=== PATIENT | female | born 1990 | race American Indian/Alaskan Native ===

== ENCOUNTER 2021-10-15 10:50 | Outpatient (CLI) | payer MEDICAID ==
[2021-10-15] MEDS ORDERED: LACTATED RINGERS 500 ML IV ONE (12:00)
[2021-10-15 12:29] LABS: Hematocrit 32.6 % (30.3-42.9); Hemoglobin 10.6 gm/dl (10.1-14.3); Mean Corpuscular HGB Conc 33 % (30-34); Mean Corpuscular Volume 80 fl (79-97); Platelet Count 204 K/mm3 (140-440); Red Blood Count 4.06 M/mm3 (3.65-5.03)
[2021-10-15 12:39] LABS: RBC,Urine < 1.0 /HPF (0.0-6.0); WBC,Urine < 1.0 /HPF (0.0-6.0)
[2021-10-15 12:49] LABS: Bilirubin,Urine Negative (Negative); Blood,Urine Negative (Negative); Color,Urine Straw (Yellow); PH,Urine 6.5 (5.0-7.0); Protein,Urine <15 mg/dL mg/dL (Negative); Urobilinogen,Urine < 2.0 mg/dL (<2.0)
[2021-10-15 12:59] VITALS: BP 109/59
[2021-10-15 13:08] LABS: Alanine Aminotransferase 15 units/L (7-56); Uric Acid 3.5 mg/dL (3.5-7.6)
== END 2021-10-15 13:56 | disposition home or self-care (01) ==
LOC: TRG 10:50 → APU 10:53 → TRG 13:56
PROVIDERS: ATTEND Student in an Organized Health Care Education/Training Program
DX: O13.3 Gestational [pregnancy-induced] hypertension without significant proteinuria, third trimester (principal); Z3A.34 34 weeks gestation of pregnancy
CPT/HCPCS: 36415; 59025; 81001; 82565; 83615; 84450; 84460; 84550; 85027; 86592; 86593; 86780

== ENCOUNTER 2021-11-14 19:30 | Inpatient (IN) | payer MEDICAID ==
[2021-11-14] MEDS ORDERED: TERBUTALINE 1 MG/1 ML INJ SUB-Q PRN (20:39)
[2021-11-14] MEDS ORDERED: ONDANSETRON 4 MG/2 ML INJ IV PRN (20:39)
[2021-11-14] MEDS ORDERED: miSOPROStol 200 MCG TAB PR PRN (20:39)
[2021-11-14] MEDS ORDERED: CARBOPROST TROMETHAMINE 250 MCG/1 ML INJ IM PRN (20:39)
[2021-11-14] MEDS ORDERED: NalbUPHINE 10 MG/1 ML INJ IV PRN (20:39)
[2021-11-14] MEDS ORDERED: METHYLERGONOVINE MALEATE 0.2 MG/ML VIAL IM PRN (20:39)
[2021-11-14] MEDS ORDERED: LIDOCAINE (2%) 20 MG/1 ML VIAL 20 ML MDV INFILTRATI ONE (20:39)
[2021-11-14] MEDS ORDERED: OXYTOCIN 10 UNIT/1 ML INJ IM PRN (20:39)
[2021-11-14] MEDS ORDERED: MINERAL OIL 30 ML ORAL LIQD PO PRN (20:39)
[2021-11-14] MEDS ORDERED: ePHEDrine SULFATE 50 MG/1 ML INJ IV PRN (20:39)
[2021-11-14] MEDS ORDERED: ACETAMINOPHEN 325 MG TAB PO PRN (20:39)
[2021-11-14] MEDS ORDERED: LOPERAMIDE 2 MG CAP PO PRN (20:39)
[2021-11-14] MEDS ORDERED: fentaNYL 100 MCG/2 ML INJ IV PRN (20:39)
--- NOTE | 2021-11-14 20:39 | History and Physical Report ---
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 Family History Summary: Mother - Has Family History of Endometrial Cancer - Entered On: 05/20/2021 Risk Factors: Smoked Tobacco Use: Never smoker Smokeless Tobacco Use: Never Passive Smoke Exposure: no HIV High Risk Behavior: no Exercise: no No Dietary Counseling Reason: pn yes PAP Smear History: Date of Last PAP Smear: 04/13/2017 Results: Normal Alcohol Use: no Drug Use: no Past Medical History Surgery (Non-taxation agent): Lymph node removed as child Abnormal PAP: No VALE Exposure: negative Infertility: negative Uterine Anomaly: negative Uterine Surgery (not C/S): negative Other Gynecologic Problems: negative Social Hx: Patient is single Smoking History: Patient has never smoked. Infection History Hx of STD: Syphilis HIV Risk Eval: no Hepatitis B Risk Eval: low risk Genetic History Congenital Heart Defect: Mom: no Dad: no Hannah Disease: Mom: no Dad: no Thalassemia Mom: no Dad: no Neural Tube Defect Mom: no Dad: no Down's Syndrome Mom: no Dad: no John-Sachs Mom: no Dad: no Sickle Cell Disease/Trait Mom: no Dad: no Hemophilia Mom: no Dad: no Muscular Dystrophy Mom: no Dad: no Cystic Fibrosis Mom: no Dad: no Nataliya Chorea Mom: no Dad: no Mental Retardation Mom: no Dad: no Fragile X Mom: no Dad: no Other Genetic/Chromosomal Disorder Mom: no Dad: no Child w/other defect Mom: no Dad: no Enviromental Exposures Xray Exposure: no Medication, drug, or alcohol use since LMP: no Chemical/Other Exposure: no Exposure to Cat Liter: no Hx of Parvovirus (Fifth Disease): no Occupational Exposure to Children: none Active Medications: B6 TABS () GARLIC TABS () VITAMINS () Current Allergies: No known allergies Past History Past Medical History: other (see HPI) Past Surgical History: other (see HPI) 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) Family/Genetic History: other (see HPI) - Obstetrical History Expected Date of Delivery: 11/21/21 Actual Gestation: 39 Week(s) 1 Day(s) : 3 Para: 1 Hx # Term Pregnancies: 1 Number of Pregnancies: 0 Spontaneous Abortions: 1 Induced : 0 Number of Living Children: 1 Medications and Allergies Allergies Allergy/AdvReac Type Severity Reaction Status Date / Time No Known Allergies Allergy Unverified 01/18/15 15:10 Home Medications Medication Instructions Recorded Confirmed Last Taken Type Vitamin 1 tab PO DAILY 01/31/15 01/31/15 01/29/15 History Review of Systems All systems: negative - Physical Exam Breasts: Positive: normal Cardiovascular: Regular rate Lungs: Positive: Normal air movement Abdomen: Positive: normal appearance, soft Genitourinary (Female): Positive: normal external genitalia, normal perenium Vulva: both: normal - Obstetrical FHR: category 1 Uterine Contraction Monitor Mode: External Cervical Dilatation: 1 Cervical Effacement Percentage: 50 station: -3 Uterine Contraction Pattern: Irregular Results Result Diagrams: 11/15/21 01:38 All other labs normal. Assessment and Plan 31y/o @ 39+0 weeks admitted for IOL d/t Diet controlled GDM. Plan for cervidil. - Patient Problems (1) Hx of syphilis Current Visit: Yes Status: Acute (2) Gestational diabetes mellitus (GDM) Current Visit: Yes Status: Acute Qualifiers: Gestational diabetes mellitus control: diet-controlled Trimester: third tr Qualified Code(s): O24.410 - Gestational diabetes mellitus in pre gnancy, diet controlled (3) with 39 completed weeks gestation Current Visit: Yes Status: Acute
[2021-11-14] MEDS ORDERED: OXYTOCIN DRIP 30 UNITS/500 ML BAG IV SCH ×2 (21:00)
[2021-11-14] MEDS ORDERED: DINOPROSTONE 10 MG VAG SUPP VG ONE (22:41)
[2021-11-15 02:00] LABS: Hematocrit 35.1 % (30.3-42.9); Hemoglobin 11.5 gm/dl (10.1-14.3); Mean Corpuscular HGB Conc 33 % (30-34); Mean Corpuscular Volume 83 fl (79-97); Platelet Count 199 K/mm3 (140-440); Red Blood Count 4.22 M/mm3 (3.65-5.03); Red Cell Distribution Width 18.8 % (13.2-15.2)
--- NOTE | 2021-11-15 06:22 | Event Note ---
Date: 11/15/21 Cervidil not placed d/t staffing, will start pitocin for IOL this AM.
[2021-11-15] MEDS: LACTATED RINGERS 1,000 ML IV SCH ×2 (06:24→09:01)
--- NOTE | 2021-11-15 07:58 | Progress Note ---
Assessment and Plan A: 31 y.o. @ 39.1 wks, IOL d/t GDM, diet controlled. - Patient Problems (1) Gestational diabetes mellitus (GDM) Current Visit: Yes Status: Acute Qualifiers: Gestational diabetes mellitus control: diet-controlled Trimester: third trimester Qualified Code(s): O24.410 - Gestational diabetes mellitus in , diet controlled Plan to address problem: Glucose checks ordered for q 6 hrs. Continue to monitor glucose during labor. (2) with 39 completed weeks gestation Current Visit: Yes Status: Acute Plan to address problem: Continue with IOL. Receiving IV fluid bolus for epidural placement. Continue to monitor status through EFM. Subjective - Subjective Date of service: 11/15/21 Principal diagnosis: IUP @ 39.1 wks, IOL d/t GDM Interval history: Pt states that she thinks her water has broken. She is also in pain from the contractions and is requesting an epidural be placed. She declines pain medicat ion via IV. Patient reports: loss of fluid (Pt states she thinks her water has broken. ) Objective - Vital Signs Vital Signs: Vital Signs - 12hr 11/15/21 11/15/21 11/15/21 00:37 00:40 00:45 Temperature Pulse Rate 83 79 83 Respiratory Rate Blood Pressure 122/58 O2 Sat by Pulse 99 99 Oximetry O2 Sat by Pulse Oximetry [ Posterior Bilateral Throughout] 11/15/21 11/15/21 11/15/21 00:50 00:55 01:00 Temperature 97.9 F Pulse Rate 90 83 82 Respiratory 18 Rate Blood Pressure O2 Sat by Pulse 98 98 100 Oximetry O2 Sat by Pulse 100 Oximetry [ Posterior Bilateral Throughout] 11/15/21 11/15/21 11/15/21 01:05 01:10 01:17 Temperature Pulse Rate 85 90 83 Respiratory Rate Blood Pressure O2 Sat by Pulse 99 99 100 Oximetry O2 Sat by Pulse Oximetry [ Posterior Bilateral Throughout] 11/15/21 11/15/21 11/15/21 01:22 01:27 01:32 Temperature Pulse Rate 75 84 88 Respiratory Rate Blood Pressure O2 Sat by Pulse 100 100 98 Oximetry O2 Sat by Pulse Oximetry [ Posterior Bilateral Throughout] 11/15/21 11/15/21 11/15/21 01:37 01:40 01:42 Temperature Pulse Rate 79 86 83 Respiratory Rate Blood Pressure O2 Sat by Pulse 98 92 99 Oximetry O2 Sat by Pulse Oximetry [ Posterior Bilateral Throughout] 11/15/21 11/15/21 11/15/21 01:47 01:52 01:57 Temperature Pulse Rate 82 81 85 Respiratory Rate Blood Pressure O2 Sat by Pulse 99 100 100 Oximetry O2 Sat by Pulse Oximetry [ Posterior Bilateral Throughout] 11/15/21 11/15/21 11/15/21 02:02 02:07 02:12 Temperature Pulse Rate 78 83 75 Respiratory Rate Blood Pressure O2 Sat by Pulse 100 100 100 Oximetry O2 Sat by Pulse Oximetry [ Posterior Bilateral Throughout] 11/15/21 11/15/21 11/15/21 02:17 02:22 02:27 Temperature Pulse Rate 75 81 80 Respiratory Rate Blood Pressure O2 Sat by Pulse 100 97 98 Oximetry O2 Sat by Pulse Oximetry [ Posterior Bilateral Throughout] 11/15/21 11/15/21 11/15/21 02:32 02:37 02:42 Temperature Pulse Rate 94 H 74 85 Respiratory Rate Blood Pressure O2 Sat by Pulse 98 100 98 Oximetry O2 Sat by Pulse Oximetry [ Posterior Bilateral Throughout] 11/15/21 11/15/21 11/15/21 02:46 02:47 02:52 Temperature Pulse Rate 78 73 80 Respiratory Rate Blood Pressure 107/51 O2 Sat by Pulse 100 98 Oximetry O2 Sat by Pulse Oximetry [ Posterior Bilateral Throughout] 11/15/21 11/15/21 11/15/21 02:57 03:02 03:07 Temperature Pulse Rate 80 80 83 Respiratory Rate Blood Pressure O2 Sat by Pulse 97 98 98 Oximetry O2 Sat by Pulse Oximetry [ Posterior Bilateral Throughout] 11/15/21 11/15/21 11/15/21 03:12 03:17 03:22 Temperature Pulse Rate 86 86 87 Respiratory Rate Blood Pressure O2 Sat by Pulse 98 98 98 Oximetry O2 Sat by Pulse Oximetry [ Posterior Bilateral Throughout] 11/15/21 11/15/21 11/15/21 03:27 03:32 03:37 Temperature Pulse Rate 89 96 H 92 H Respiratory Rate Blood Pressure O2 Sat by Pulse 99 99 99 Oximetry O2 Sat by Pulse Oximetry [ Posterior Bilateral Throughout] 11/15/21 11/15/21 11/15/21 03:41 03:42 03:47 Temperature Pulse Rate 86 84 88 Respiratory Rate Blood Pressure 115/59 O2 Sat by Pulse 99 100 Oximetry O2 Sat by Pulse Oximetry [ Posterior Bilateral Throughout] 11/15/21 11/15/21 11/15/21 03:52 03:57 04:02 Temperature Pulse Rate 90 81 110 H Respiratory Rate Blood Pressure O2 Sat by Pulse 99 100 99 Oximetry O2 Sat by Pulse Oximetry [ Posterior Bilateral Throughout] 11/15/21 11/15/21 11/15/21 04:07 04:12 04:17 Temperature Pulse Rate 83 101 H 91 H Respiratory Rate Blood Pressure O2 Sat by Pulse 99 98 98 Oximetry O2 Sat by Pulse Oximetry [ Posterior Bilateral Throughout] 11/15/21 11/15/21 11/15/21 04:22 04:27 04:32 Temperature Pulse Rate 80 82 91 H Respiratory Rate Blood Pressure O2 Sat by Pulse 98 99 98 Oximetry O2 Sat by Pulse Oximetry [ Posterior Bilateral Throughout] 11/15/21 11/15/21 11/15/21 04:37 04:42 04:47 Temperature Pulse Rate 98 H 81 99 H Respiratory Rate Blood Pressure O2 Sat by Pulse 100 100 100 Oximetry O2 Sat by Pulse Oximetry [ Posterior Bilateral Throughout] 11/15/21 11/15/21 11/15/21 04:50 04:52 04:57 Temperature Pulse Rate 82 80 84 Respiratory Rate Blood Pressure 99/55 O2 Sat by Pulse 100 100 Oximetry O2 Sat by Pulse Oximetry [ Posterior Bilateral Throughout] 11/15/21 11/15/21 11/15/21 05:02 05:07 05:12 Temperature Pulse Rate 90 74 84 Respiratory Rate Blood Pressure O2 Sat by Pulse 100 100 100 Oximetry O2 Sat by Pulse Oximetry [ Posterior Bilateral Throughout] 11/15/21 11/15/21 11/15/21 05:17 05:22 05:27 Temperature Pulse Rate 93 H 84 108 H Respiratory Rate Blood Pressure O2 Sat by Pulse 99 100 99 Oximetry O2 Sat by Pulse Oximetry [ Posterior Bilateral Throughout] 11/15/21 11/15/21 11/15/21 05:28 05:32 05:37 Temperature Pulse Rate 105 H 83 85 Respiratory Rate Blood Pressure O2 Sat by Pulse 90 100 99 Oximetry O2 Sat by Pulse Oximetry [ Posterior Bilateral Throughout] 11/15/21 11/15/21 11/15/21 05:42 05:47 05:52 Temperature Pulse Rate 85 87 89 Respiratory Rate Blood Pressure O2 Sat by Pulse 98 98 98 Oximetry O2 Sat by Pulse Oximetry [ Posterior Bilateral Throughout] 11/15/21 11/15/21 11/15/21 05:57 06:02 06:05 Temperature 97.7 F Pulse Rate 93 H 94 H Respiratory 18 Rate Blood Pressure O2 Sat by Pulse 98 97 97 Oximetry O2 Sat by Pulse Oximetry [ Posterior Bilateral Throughout] 11/15/21 11/15/21 11/15/21 06:33 06:51 07:00 Temperature 98 F Pulse Rate 78 77 85 Respiratory 18 Rate Blood Pressure 95/50 89/52 O2 Sat by Pulse 100 Oximetry O2 Sat by Pulse 100 Oximetry [ Posterior Bilateral Throughout] 11/15/21 11/15/21 11/15/21 07:01 07:06 07:11 Temperature Pulse Rate 85 82 84 Respiratory Rate Blood Pressure O2 Sat by Pulse 100 100 100 Oximetry O2 Sat by Pulse Oximetry [ Posterior Bilateral Throughout] 11/15/21 11/15/21 11/15/21 07:16 07:21 07:26 Temperature Pulse Rate 82 80 86 Respiratory Rate Blood Pressure O2 Sat by Pulse 100 99 100 Oximetry O2 Sat by Pulse Oximetry [ Posterior Bilateral Throughout] 11/15/21 11/15/21 11/15/21 07:31 07:36 07:41 Temperature Pulse Rate 91 H 84 84 Respiratory Rate Blood Pressure O2 Sat by Pulse 100 99 99 Oximetry O2 Sat by Pulse Oximetry [ Posterior Bilateral Throughout] 11/15/21 11/15/21 11/15/21 07:46 07:51 07:56 Temperature Pulse Rate 91 H 80 76 Respiratory Rate Blood Pressure 122/88 O2 Sat by Pulse 98 100 100 Oximetry O2 Sat by Pulse Oximetry [ Posterior Bilateral Throughout] - Exam Breasts: deferred Cardiovascular: Regular rate Lungs: Normal air movement Abdomen: Present: normal appearance, soft Vulva: both: normal Uterus: Present: normal FHR: category 1 Uterine Contraction Monitor Mode: External Cervical Dilatation: 1 (Small amount of fluid seen at perineum. ) Cervical Effacement Percentage: 50 station: -3 Uterine Contraction Pattern: Regular Uterine Tone Measurement Phase: Resting Uterine Contraction Intensity: Moderate - Labs Labs: Abnormal Labs 11/15/21 11/15/21 01:38 01:38 MCH 27 L RDW 18.8 H Syphilis IgG/IgM Ab Reactive A Laboratory Results - last 24 hr 11/15/21 11/15/21 11/15/21 01:38 01:38 01:38 WBC 7.8 RBC 4.22 Hgb 11.5 Hct 35.1 MCV 83 MCH 27 L MCHC 33 RDW 18.8 H Plt Count 199 Syphilis IgG/IgM Ab Reactive A RPR Titer Blood Type A POSITIVE Antibody Screen Negative 11/15/21 01:38 WBC RBC Hgb Hct MCV MCH MCHC RDW Plt Count Syphilis IgG/IgM Ab RPR Titer 1:2 Blood Type Antibody Screen
[2021-11-15] MEDS ORDERED: DEXTROSE 50% IN WATER (25GM) 50 ML SYRINGE IV PRN (08:00)
[2021-11-15] MEDS ORDERED: INSULIN REGULAR, HUMAN 100 UNITS/1 ML SUB-Q SCH (09:00)
[2021-11-15] MEDS ORDERED: ePHEDrine SULFATE 50 MG/1 ML INJ IV PRN (09:19)
[2021-11-15] MEDS ORDERED: fentaNYL-BUPIV 2 MCG/ML-0.125% 200 MCG/100 ML BAG EPIDURAL ONE (09:19)
[2021-11-15] MEDS ORDERED: NALOXONE 0.4 MG/1 ML INJ IV PRN (09:19)
--- NOTE | 2021-11-15 09:19 | Anesthesia Consultation ---
Anesthesia Consult and Med Hx Date of service: 11/15/21 - Airway Anesthetic Teeth Evaluation: Good ROM Head & Neck: Adequate Mental/Hyoid Distance: Adequate Mallampati Class: Class II Intubation Access Assessment: Probably Good - Pre-Operative Health Status ASA Pre-Surgery Classification: ASA3 Proposed Anesthetic Plan: Epidural, Spinal - Pulmonary Hx Asthma: Yes (CHILDHOOD) COPD: No Hx Pneumonia: No - Cardiovascular System Hx Hypertension: No - Central Nervous System Hx Seizures: No Hx Psychiatric Problems: No - Endocrine Hx Renal Disease: No Hx End Stage Renal Disease: No Hx Non-Insulin Dependent Diabetes: Yes (gestational diabetes) Hx Hypothyroidism: No Hx Hyperthyroidism: No - Hematic Hx Anemia: No Hx Sickle Cell Disease: No - Other Systems Hx Alcohol Use: No Hx Obesity: Yes (BMI 43.7) - Additional Comments Anesthesia Medical History Comments: h/o syphilis
--- NOTE | 2021-11-15 09:52 | Progress Note ---
Labor Epidural - Labor Epidural Start Time: 09:31 Stop Time: 09:42 Performed by:: NA GREGORY Procedure: Combined spinal/epidural for labor Patient is requesting epidural for labor and pain. H&P, labs were reviewed. Patient ID confirmed, all questions and concerns were answered, and consent was signed. Timeout was performed at bedside. Patient in sitting position. Sterile prep and drape was performed. 3ml of 1% lidocaine skin wheal at L3- L4 interspace. 17-gauge Tuohy epidural needle was advanced to loss of resistance with saline technique cm x 1 attempt. 25G spinal needle introduced through epidural needle to the spinal space. Clear CSF. Injected .1ml of Precedex in the spinal space. Negative CSF negative blood. Epidural catheter advanced to 15 centimeters. Negative aspiration, test dose 3ml 1.5% Lidocaine with epi - negative. Sterile dressing applied. Patient tolerated procedure.
[2021-11-15] MEDS ORDERED: fentaNYL-BUPIV 2 MCG/ML-0.125% 200 MCG/100 ML BAG EPIDURAL SCH (10:00)
--- NOTE | 2021-11-15 12:36 | Progress Note ---
Assessment and Plan A: 31 y.o. @ 39.1 wks, IOL d/t GDM. Active labor. P: Continue with Pitocin per protocol. Continue to monitor status through EFM. Anticipate . - Patient Problems (1) Gestational diabetes mellitus (GDM) Current Visit: Yes Status: Acute Qualifiers: Gestational diabetes mellitus control: diet-controlled Trimester: third trimester Qualified Code(s): O24.410 - Gestational diabetes mellitus in , diet controlled (2) with 39 completed weeks gestation Current Visit: Yes Status: Acute Subjective - Subjective Date of service: 11/15/21 Principal diagnosis: IUP @ 39.1 wks, IOL d/t GDM Interval history: Pt comfortable with epidural. Patient reports: loss of fluid (Pt states she thinks her water has broken. ) Objective - Vital Signs Vital Signs: Vital Signs - 12hr 11/15/21 11/15/21 11/15/21 00:37 00:40 00:45 Temperature Pulse Rate 83 79 83 Respiratory Rate Blood Pressure 122/58 Blood Pressure [Right] O2 Sat by Pulse 99 99 Oximetry O2 Sat by Pulse Oximetry [ Posterior Bilateral Throughout] 11/15/21 11/15/21 11/15/21 00:50 00:55 01:00 Temperature 97.9 F Pulse Rate 90 83 82 Respiratory 18 Rate Blood Pressure Blood Pressure [Right] O2 Sat by Pulse 98 98 100 Oximetry O2 Sat by Pulse 100 Oximetry [ Posterior Bilateral Throughout] 11/15/21 11/15/21 11/15/21 01:05 01:10 01:17 Temperature Pulse Rate 85 90 83 Respiratory Rate Blood Pressure Blood Pressure [Right] O2 Sat by Pulse 99 99 100 Oximetry O2 Sat by Pulse Oximetry [ Posterior Bilateral Throughout] 11/15/21 11/15/21 11/15/21 01:22 01:27 01:32 Temperature Pulse Rate 75 84 88 Respiratory Rate Blood Pressure Blood Pressure [Right] O2 Sat by Pulse 100 100 98 Oximetry O2 Sat by Pulse Oximetry [ Posterior Bilateral Throughout] 11/15/21 11/15/21 11/15/21 01:37 01:40 01:42 Temperature Pulse Rate 79 86 83 Respiratory Rate Blood Pressure Blood Pressure [Right] O2 Sat by Pulse 98 92 99 Oximetry O2 Sat by Pulse Oximetry [ Posterior Bilateral Throughout] 11/15/21 11/15/21 11/15/21 01:47 01:52 01:57 Temperature Pulse Rate 82 81 85 Respiratory Rate Blood Pressure Blood Pressure [Right] O2 Sat by Pulse 99 100 100 Oximetry O2 Sat by Pulse Oximetry [ Posterior Bilateral Throughout] 11/15/21 11/15/21 11/15/21 02:02 02:07 02:12 Temperature Pulse Rate 78 83 75 Respiratory Rate Blood Pressure Blood Pressure [Right] O2 Sat by Pulse 100 100 100 Oximetry O2 Sat by Pulse Oximetry [ Posterior Bilateral Throughout] 11/15/21 11/15/21 11/15/21 02:17 02:22 02:27 Temperature Pulse Rate 75 81 80 Respiratory Rate Blood Pressure Blood Pressure [Right] O2 Sat by Pulse 100 97 98 Oximetry O2 Sat by Pulse Oximetry [ Posterior Bilateral Throughout] 11/15/21 11/15/21 11/15/21 02:32 02:37 02:42 Temperature Pulse Rate 94 H 74 85 Respiratory Rate Blood Pressure Blood Pressure [Right] O2 Sat by Pulse 98 100 98 Oximetry O2 Sat by Pulse Oximetry [ Posterior Bilateral Throughout] 11/15/21 11/15/21 11/15/21 02:46 02:47 02:52 Temperature Pulse Rate 78 73 80 Respiratory Rate Blood Pressure 107/51 Blood Pressure [Right] O2 Sat by Pulse 100 98 Oximetry O2 Sat by Pulse Oximetry [ Posterior Bilateral Throughout] 11/15/21 11/15/21 11/15/21 02:57 03:02 03:07 Temperature Pulse Rate 80 80 83 Respiratory Rate Blood Pressure Blood Pressure [Right] O2 Sat by Pulse 97 98 98 Oximetry O2 Sat by Pulse Oximetry [ Posterior Bilateral Throughout] 11/15/21 11/15/21 11/15/21 03:12 03:17 03:22 Temperature Pulse Rate 86 86 87 Respiratory Rate Blood Pressure Blood Pressure [Right] O2 Sat by Pulse 98 98 98 Oximetry O2 Sat by Pulse Oximetry [ Posterior Bilateral Throughout] 11/15/21 11/15/21 11/15/21 03:27 03:32 03:37 Temperature Pulse Rate 89 96 H 92 H Respiratory Rate Blood Pressure Blood Pressure [Right] O2 Sat by Pulse 99 99 99 Oximetry O2 Sat by Pulse Oximetry [ Posterior Bilateral Throughout] 11/15/21 11/15/21 11/15/21 03:41 03:42 03:47 Temperature Pulse Rate 86 84 88 Respiratory Rate Blood Pressure 115/59 Blood Pressure [Right] O2 Sat by Pulse 99 100 Oximetry O2 Sat by Pulse Oximetry [ Posterior Bilateral Throughout] 11/15/21 11/15/21 11/15/21 03:52 03:57 04:02 Temperature Pulse Rate 90 81 110 H Respiratory Rate Blood Pressure Blood Pressure [Right] O2 Sat by Pulse 99 100 99 Oximetry O2 Sat by Pulse Oximetry [ Posterior Bilateral Throughout] 11/15/21 11/15/21 11/15/21 04:07 04:12 04:17 Temperature Pulse Rate 83 101 H 91 H Respiratory Rate Blood Pressure Blood Pressure [Right] O2 Sat by Pulse 99 98 98 Oximetry O2 Sat by Pulse Oximetry [ Posterior Bilateral Throughout] 11/15/21 11/15/21 11/15/21 04:22 04:27 04:32 Temperature Pulse Rate 80 82 91 H Respiratory Rate Blood Pressure Blood Pressure [Right] O2 Sat by Pulse 98 99 98 Oximetry O2 Sat by Pulse Oximetry [ Posterior Bilateral Throughout] 11/15/21 11/15/21 11/15/21 04:37 04:42 04:47 Temperature Pulse Rate 98 H 81 99 H Respiratory Rate Blood Pressure Blood Pressure [Right] O2 Sat by Pulse 100 100 100 Oximetry O2 Sat by Pulse Oximetry [ Posterior Bilateral Throughout] 11/15/21 11/15/21 11/15/21 04:50 04:52 04:57 Temperature Pulse Rate 82 80 84 Respiratory Rate Blood Pressure 99/55 Blood Pressure [Right] O2 Sat by Pulse 100 100 Oximetry O2 Sat by Pulse Oximetry [ Posterior Bilateral Throughout] 11/15/21 11/15/21 11/15/21 05:02 05:07 05:12 Temperature Pulse Rate 90 74 84 Respiratory Rate Blood Pressure Blood Pressure [Right] O2 Sat by Pulse 100 100 100 Oximetry O2 Sat by Pulse Oximetry [ Posterior Bilateral Throughout] 11/15/21 11/15/21 11/15/21 05:17 05:22 05:27 Temperature Pulse Rate 93 H 84 108 H Respiratory Rate Blood Pressure Blood Pressure [Right] O2 Sat by Pulse 99 100 99 Oximetry O2 Sat by Pulse Oximetry [ Posterior Bilateral Throughout] 11/15/21 11/15/21 11/15/21 05:28 05:32 05:37 Temperature Pulse Rate 105 H 83 85 Respiratory Rate Blood Pressure Blood Pressure [Right] O2 Sat by Pulse 90 100 99 Oximetry O2 Sat by Pulse Oximetry [ Posterior Bilateral Throughout] 11/15/21 11/15/21 11/15/21 05:42 05:47 05:52 Temperature Pulse Rate 85 87 89 Respiratory Rate Blood Pressure Blood Pressure [Right] O2 Sat by Pulse 98 98 98 Oximetry O2 Sat by Pulse Oximetry [ Posterior Bilateral Throughout] 11/15/21 11/15/21 11/15/21 05:57 06:02 06:05 Temperature 97.7 F Pulse Rate 93 H 94 H Respiratory 18 Rate Blood Pressure Blood Pressure [Right] O2 Sat by Pulse 98 97 97 Oximetry O2 Sat by Pulse Oximetry [ Posterior Bilateral Throughout] 11/15/21 11/15/21 11/15/21 06:33 06:51 07:00 Temperature 98 F Pulse Rate 78 77 85 Respiratory 18 Rate Blood Pressure 95/50 89/52 Blood Pressure [Right] O2 Sat by Pulse 100 Oximetry O2 Sat by Pulse 100 Oximetry [ Posterior Bilateral Throughout] 11/15/21 11/15/21 11/15/21 07:01 07:06 07:11 Temperature Pulse Rate 85 82 84 Respiratory Rate Blood Pressure Blood Pressure [Right] O2 Sat by Pulse 100 100 100 Oximetry O2 Sat by Pulse Oximetry [ Posterior Bilateral Throughout] 11/15/21 11/15/21 11/15/21 07:16 07:21 07:26 Temperature Pulse Rate 82 80 86 Respiratory Rate Blood Pressure Blood Pressure [Right] O2 Sat by Pulse 100 99 100 Oximetry O2 Sat by Pulse Oximetry [ Posterior Bilateral Throughout] 11/15/21 11/15/21 11/15/21 07:31 07:36 07:41 Temperature Pulse Rate 91 H 84 84 Respiratory Rate Blood Pressure Blood Pressure [Right] O2 Sat by Pulse 100 99 99 Oximetry O2 Sat by Pulse Oximetry [ Posterior Bilateral Throughout] 11/15/21 11/15/21 11/15/21 07:46 07:51 07:56 Temperature Pulse Rate 91 H 80 76 Respiratory Rate Blood Pressure 122/88 Blood Pressure [Right] O2 Sat by Pulse 98 100 100 Oximetry O2 Sat by Pulse Oximetry [ Posterior Bilateral Throughout] 11/15/21 11/15/21 11/15/21 08:01 08:06 08:11 Temperature Pulse Rate 89 75 87 Respiratory Rate Blood Pressure Blood Pressure [Right] O2 Sat by Pulse 100 100 100 Oximetry O2 Sat by Pulse Oximetry [ Posterior Bilateral Throughout] 0811/15/21 11/15/21 08:16 08:21 08:26 Temperature Pulse Rate 90 75 74 Respiratory Rate Blood Pressure Blood Pressure [Right] O2 Sat by Pulse 100 100 100 Oximetry O2 Sat by Pulse Oximetry [ Posterior Bilateral Throughout] 11/15/21 11/15/21 11/15/21 08:31 08:36 08:41 Temperature Pulse Rate 85 84 75 Respiratory Rate Blood Pressure Blood Pressure [Right] O2 Sat by Pulse 100 100 100 Oximetry O2 Sat by Pulse Oximetry [ Posterior Bilateral Throughout] 11/15/21 11/15/21 11/15/21 08:46 08:51 08:56 Temperature Pulse Rate 87 85 86 Respiratory Rate Blood Pressure 102/53 Blood Pressure [Right] O2 Sat by Pulse 100 100 100 Oximetry O2 Sat by Pulse Oximetry [ Posterior Bilateral Throughout] 11/15/21 11/15/21 11/15/21 09:01 09:24 09:29 Temperature Pulse Rate 94 H 86 91 H Respiratory Rate Blood Pressure Blood Pressure [Right] O2 Sat by Pulse 100 100 100 Oximetry O2 Sat by Pulse Oximetry [ Posterior Bilateral Throughout] 11/15/21 11/15/21 11/15/21 09:33 09:34 09:37 Temperature Pulse Rate 86 84 99 H Respiratory Rate Blood Pressure 128/72 125/66 Blood Pressure [Right] O2 Sat by Pulse 100 Oximetry O2 Sat by Pulse Oximetry [ Posterior Bilateral Throughout] 11/15/21 11/15/21 11/15/21 09:39 09:41 09:43 Temperature Pulse Rate 89 94 H 73 Respiratory Rate Blood Pressure 122/58 124/64 Blood Pressure [Right] O2 Sat by Pulse 100 Oximetry O2 Sat by Pulse Oximetry [ Posterior Bilateral Throughout] 11/15/21 11/15/21 11/15/21 09:44 09:46 09:49 Temperature Pulse Rate 86 75 76 Respiratory Rate Blood Pressure 126/68 114/55 Blood Pressure [Right] O2 Sat by Pulse 100 100 Oximetry O2 Sat by Pulse Oximetry [ Posterior Bilateral Throughout] 11/15/21 11/15/21 11/15/21 09:54 09:59 10:04 Temperature Pulse Rate 89 87 85 Respiratory Rate Blood Pressure 109/57 Blood Pressure [Right] O2 Sat by Pulse 99 98 98 Oximetry O2 Sat by Pulse Oximetry [ Posterior Bilateral Throughout] 11/15/21 11/15/21 11/15/21 10:09 10:11 10:14 Temperature Pulse Rate 78 81 74 Respiratory Rate Blood Pressure 93/57 Blood Pressure [Right] O2 Sat by Pulse 99 98 Oximetry O2 Sat by Pulse Oximetry [ Posterior Bilateral Throughout] 11/15/21 11/15/21 11/15/21 10:19 10:24 10:25 Temperature Pulse Rate 74 75 71 Respiratory Rate Blood Pressure 101/61 Blood Pressure [Right] O2 Sat by Pulse 99 99 Oximetry O2 Sat by Pulse Oximetry [ Posterior Bilateral Throughout] 11/15/21 11/15/21 11/15/21 10:29 10:32 10:34 Temperature 97.6 F Pulse Rate 73 75 75 Respiratory 16 Rate Blood Pressure Blood Pressure 101/61 [Right] O2 Sat by Pulse 98 98 99 Oximetry O2 Sat by Pulse Oximetry [ Posterior Bilateral Throughout] 11/15/21 11/15/21 11/15/21 10:39 10:41 10:44 Temperature Pulse Rate 76 74 74 Respiratory Rate Blood Pressure 97/54 Blood Pressure [Right] O2 Sat by Pulse 99 99 Oximetry O2 Sat by Pulse Oximetry [ Posterior Bilateral Throughout] 11/15/21 11/15/21 11/15/21 10:49 10:54 10:56 Temperature Pulse Rate 73 75 75 Respiratory Rate Blood Pressure 100/59 Blood Pressure [Right] O2 Sat by Pulse 99 99 Oximetry O2 Sat by Pulse Oximetry [ Posterior Bilateral Throughout] 11/15/21 11/15/21 11/15/21 10:59 11:04 11:09 Temperature Pulse Rate 75 78 77 Respiratory Rate Blood Pressure Blood Pressure [Right] O2 Sat by Pulse 99 99 100 Oximetry O2 Sat by Pulse Oximetry [ Posterior Bilateral Throughout] 11/15/21 11/15/21 11/15/21 11:11 11:14 11:19 Temperature Pulse Rate 72 71 73 Respiratory Rate Blood Pressure 103/58 Blood Pressure [Right] O2 Sat by Pulse 100 100 Oximetry O2 Sat by Pulse Oximetry [ Posterior Bilateral Throughout] 11/15/21 11/15/21 11/15/21 11:24 11:26 11:29 Temperature Pulse Rate 74 68 71 Respiratory Rate Blood Pressure 105/55 Blood Pressure [Right] O2 Sat by Pulse 100 100 Oximetry O2 Sat by Pulse Oximetry [ Posterior Bilateral Throughout] 08/05/22 08/05/22 08/05/22 11:34 11:36 11:39 Temperature Pulse Rate 72 89 81 Respiratory Rate Blood Pressure Blood Pressure [Right] O2 Sat by Pulse 100 91 100 Oximetry O2 Sat by Pulse Oximetry [ Posterior Bilateral Throughout] 11/15/21 11/15/21 11/15/21 11:41 11:44 11:49 Temperature Pulse Rate 74 72 86 Respiratory Rate Blood Pressure 107/64 Blood Pressure [Right] O2 Sat by Pulse 100 100 Oximetry O2 Sat by Pulse Oximetry [ Posterior Bilateral Throughout] 11/15/21 11/15/21 11/15/21 11:54 11:56 11:59 Temperature Pulse Rate 74 70 72 Respiratory Rate Blood Pressure 101/64 Blood Pressure [Right] O2 Sat by Pulse 100 100 Oximetry O2 Sat by Pulse Oximetry [ Posterior Bilateral Throughout] 11/15/21 11/15/21 11/15/21 12:04 12:09 12:11 Temperature Pulse Rate 69 76 78 Respiratory Rate Blood Pressure 104/63 Blood Pressure [Right] O2 Sat by Pulse 100 100 Oximetry O2 Sat by Pulse Oximetry [ Posterior Bilateral Throughout] 11/15/21 11/15/21 11/15/21 12:14 12:19 12:24 Temperature Pulse Rate 72 77 75 Respiratory Rate Blood Pressure Blood Pressure [Right] O2 Sat by Pulse 100 100 99 Oximetry O2 Sat by Pulse Oximetry [ Posterior Bilateral Throughout] 11/15/21 12:25 Temperature Pulse Rate 71 Respiratory Rate Blood Pressure 99/60 Blood Pressure [Right] O2 Sat by Pulse Oximetry O2 Sat by Pulse Oximetry [ Posterior Bilateral Throughout] - Exam Narrative Exam: FSE and IUPC placed. Glucose 93. Cardiovascular: Regular rate Lungs: Normal air movement Abdomen: Present: normal appearance, soft Vulva: both: normal Uterus: Present: normal FHR: category 1 Uterine Contraction Monitor Mode: Internal (Internal placed.) Cervical Dilatation: 7.5 Cervical Effacement Percentage: 80 station: -3 Uterine Contraction Pattern: Regular Uterine Tone Measurement Phase: Resting Uterine Contraction Intensity: Moderate - Labs Labs: Abnormal Labs 11/15/21 11/15/21 01:38 01:38 MCH 27 L RDW 18.8 H Syphilis IgG/IgM Ab Reactive A Laboratory Results - last 24 hr 11/15/21 11/15/21 11/15/21 01:38 01:38 01:38 WBC 7.8 RBC 4.22 Hgb 11.5 Hct 35.1 MCV 83 MCH 27 L MCHC 33 RDW 18.8 H Plt Count 199 POC Glucose Syphilis IgG/IgM Ab Reactive A RPR Titer SARS-CoV-2 (PCR) Blood Type A POSITIVE Antibody Screen Negative 11/15/21 11/15/21 11/15/21 01:38 09:27 09:30 WBC RBC Hgb Hct MCV MCH MCHC RDW Plt Count POC Glucose 93 Syphilis IgG/IgM Ab RPR Titer 1:2 SARS-CoV-2 (PCR) Negative Blood Type Antibody Screen
--- NOTE | 2021-11-15 17:47 | Procedure Note ---
OB Delivery Note - Delivery Date of Delivery: 11/15/21 [employer] Instructor: BRIANNA SUTTON Estimated blood loss: 100cc - Vaginal Delivery presentation: vertex Delivery position: OA Intrapartum events: mult.variable deceleratio Delivery induction: cervidil Delivery augmentation: pitocin Delivery monitor: external FHT, external uterine, internal FHT, internal uterine Delivery placenta: spontaneous Delivery cord: 3 umbilical vessels Episiotomy: none Delivery laceration: 1st degree (Hemostatic, no repair needed. ) Anesthesia: epidural Delivery comments: of viable male infant. Infant to mother's abdomen for skin to skin. Cord clamped. Cut by FOC. handed to [facility] team for evaluation. Spontaneous delivery of placenta, intact, complete, 3 vessels noted. Perineum and vagina inspected, 1st degree noted, hemostatic, no repair needed. Fundus firm, minimal bleeding noted. Apgars 8,9. Infant weight 6-13. QBL 100ml. and mother left in stable condition in care of RN.
[2021-11-15] MEDS ORDERED: PROMETHAZINE 25 MG TAB PO PRN (18:29)
[2021-11-15] MEDS ORDERED: WITCH HAZEL/ GLYCERIN PAD TP PRN (18:29)
[2021-11-15] MEDS ORDERED: BENZOCAINE/MENTHOL 20/0.5% TOP SPRAY 56 GM TP PRN (18:29)
[2021-11-15] MEDS ORDERED: OXYTOCIN DRIP 30 UNITS/500 ML BAG IV SCH (18:29)
[2021-11-15] MEDS ORDERED: miSOPROStol 100 MCG TAB PR PRN (18:29)
[2021-11-15] MEDS ORDERED: ACETAMINOPHEN 325 MG TAB PO PRN (18:29)
[2021-11-15] MEDS ORDERED: LANOLIN/ZINC/DIMETHICONE (LANSINOH) 7 GM TP PRN ×2 (18:29)
[2021-11-15] MEDS ORDERED: diphenhydrAMINE 25 MG CAP PO PRN (18:29)
[2021-11-15] MEDS ORDERED: ONDANSETRON 4 MG/2 ML INJ IV PRN (18:29)
[2021-11-15] MEDS ORDERED: MAGNESIUM HYDROXIDE (MOM) ORAL LIQD UDC PO PRN (18:29)
[2021-11-15] MEDS ORDERED: PROMETHAZINE 25 MG RECT SUPP PR PRN (18:29)
[2021-11-15] MEDS ORDERED: oxyCODONE /ACETAMINOPHEN 5-325MG TAB PO PRN (18:29)
[2021-11-15] MEDS: IBUPROFEN 800 MG TAB PO SCH (21:45)
[2021-11-15] MEDS: DOCUSATE SODIUM 100 MG CAP PO SCH (21:45)
[2021-11-16] MEDS: IBUPROFEN 800 MG TAB PO SCH ×3 (06:50→18:49)
[2021-11-16 07:35] LABS: Hematocrit 31.1 % (30.3-42.9); Hemoglobin 10.1 gm/dl (10.1-14.3)
[2021-11-16] MEDS ORDERED: PRENATAL VIT27-FE FUMARATE-FOLIC ACID VIT TAB PO SCH (10:00)
--- NOTE | 2021-11-16 10:28 | Progress Note ---
Assessment and Plan - Patient Problems (1) Gestational diabetes mellitus (GDM) Current Visit: Yes Status: Acute Qualifiers: Gestational diabetes mellitus control: diet-controlled Trimester: third trimester Qualified Code(s): O24.410 - Gestational diabetes mellitus in , diet controlled (2) Single liveborn delivery outcome Current Visit: No Status: Acute Plan to address problem: -routine pp care d/c home this pm (3) Hx of syphilis Current Visit: Yes Status: Acute Subjective - Subjective Date of service: 11/16/21 Principal diagnosis: PPD#1 s/pSVD Interval history: Pt doing well. no c/o desires d/c home today. Patient reports: appetite normal, voiding normally, pain well controlled, no dizzy ambulation [employer]: doing well, nursing well, bottle feeding Objective - Vital Signs Latest vital signs: Vital Signs Temp Pulse Resp BP BP Pulse Ox Pulse Ox 11/16/21 07:33 98.2 F 86 18 112/52 93 11/16/21 05:28 97.8 F 89 20 114/49 98 11/16/21 00:42 98.2 F 101 H 20 114/62 99 11/15/21 21:45 18 11/15/21 21:43 98 11/15/21 19:30 96 H 100 11/15/21 19:25 92 H 117/77 100 11/15/21 19:20 83 100 11/15/21 19:15 101 H 99 11/15/21 19:10 98 H 102/55 99 11/15/21 19:05 89 100 11/15/21 19:00 94 H 100 11/15/21 18:55 87 99/57 100 11/15/21 18:50 91 H 100 11/15/21 18:45 104 H 100 11/15/21 18:40 86 99/51 100 11/15/21 18:35 92 H 100 11/15/21 18:32 98 F 11/15/21 18:30 89 100 11/15/21 18:25 95 H 104/66 100 11/15/21 18:20 90 100 11/15/21 18:15 89 100 11/15/21 18:11 97 H 109/59 11/15/21 18:10 94 H 100 11/15/21 18:05 103 H 100 11/15/21 18:00 85 100 11/15/21 17:55 90 100 11/15/21 17:50 100 H 99 11/15/21 17:45 96 H 100 11/15/21 17:40 89 101/51 100 11/15/21 17:35 90 100 11/15/21 17:33 91 H 93 11/15/21 17:30 87 100 11/15/21 17:25 91 H 107/52 100 11/15/21 17:20 90 100 11/15/21 17:15 92 H 100 11/15/21 17:09 109 H 99 11/15/21 17:04 102 H 100 11/15/21 17:03 111 H 89 11/15/21 16:59 97 H 100 11/15/21 16:56 79 125/70 11/15/21 16:54 83 100 11/15/21 16:49 90 100 11/15/21 16:44 82 100 11/15/21 16:42 97 H 147/74 11/15/21 16:39 98 H 100 11/15/21 16:34 88 100 11/15/21 16:29 82 100 11/15/21 16:25 88 121/70 11/15/21 16:24 91 H 100 11/15/21 16:19 83 100 11/15/21 16:14 82 100 11/15/21 16:10 84 123/74 11/15/21 16:09 84 100 11/15/21 16:04 83 100 11/15/21 15:59 78 100 11/15/21 15:55 86 122/76 11/15/21 15:54 79 100 11/15/21 15:49 78 100 11/15/21 15:44 85 100 11/15/21 15:40 73 121/74 11/15/21 15:39 81 100 11/15/21 15:34 81 100 11/15/21 15:29 76 100 11/15/21 15:25 76 120/69 11/15/21 15:24 88 100 11/15/21 15:19 72 100 11/15/21 15:14 76 100 11/15/21 15:10 71 119/67 11/15/21 15:09 76 100 11/15/21 15:04 78 100 11/15/21 14:59 81 100 11/15/21 14:56 76 117/62 0805/22 14:54 88 100 11/15/21 14:49 79 86 11/15/21 14:44 75 100 11/15/21 14:41 81 105/64 11/15/21 14:39 82 100 11/15/21 14:34 84 100 11/15/21 14:29 89 100 11/15/21 14:27 83 104/59 11/15/21 14:24 79 100 11/15/21 14:19 82 100 11/15/21 14:14 83 100 11/15/21 14:12 75 102/65 11/15/21 14:09 81 100 11/15/21 14:04 74 100 11/15/21 13:59 83 100 11/15/21 13:56 80 133/53 11/15/21 13:54 87 100 11/15/21 13:49 90 99 11/15/21 13:46 97 H 94 11/15/21 13:44 82 100 11/15/21 13:40 72 91/52 11/15/21 13:39 82 100 11/15/21 13:34 79 100 11/15/21 13:29 71 100 11/15/21 13:25 78 91/54 11/15/21 13:24 79 100 11/15/21 13:19 73 100 11/15/21 13:14 69 100 11/15/21 13:10 73 99/52 11/15/21 13:09 72 100 11/15/21 13:04 73 100 11/15/21 12:59 72 100 11/15/21 12:57 67 96/54 11/15/21 12:54 72 100 11/15/21 12:49 76 100 11/15/21 12:44 79 100 11/15/21 12:41 63 90/51 11/15/21 12:39 64 100 11/15/21 12:34 68 100 11/15/21 12:29 70 100 11/15/21 12:25 71 99/60 11/15/21 12:24 75 99 11/15/21 12:19 77 100 11/15/21 12:14 72 100 11/15/21 12:11 78 104/63 08 12:09 76 100 11/15/21 12:04 69 100 08 11:59 72 100 08/05/22 11:56 70 101/64 11/15/21 11:54 74 100 11/15/21 11:49 86 100 11/15/21 11:44 72 100 11/15/21 11:41 74 107/64 11/15/21 11:39 81 100 11/15/21 11:36 89 91 11/15/21 11:34 72 100 11/15/21 11:29 71 100 11/15/21 11:26 68 105/55 11/15/21 11:24 74 100 11/15/21 11:19 73 100 11/15/21 11:14 71 100 11/15/21 11:11 72 103/58 11/15/21 11:09 77 100 11/15/21 11:04 78 99 11/15/21 10:59 75 99 11/15/21 10:56 75 100/59 11/15/21 10:54 75 99 11/15/21 10:49 73 99 11/15/21 10:44 74 99 11/15/21 10:41 74 97/54 11/15/21 10:39 76 99 11/15/21 10:34 75 99 11/15/21 10:32 97.6 F 75 16 101/61 98 11/15/21 10:29 73 98 Intake and Output 11/15/21 11/16/21 11/16/21 22:59 06:59 14:59 Intake Total 240 120 Output Total 100 Balance 140 120 Intake: Oral 240 120 Output: Urine 100 Uretheral ([place]) 100 Other: Total, Intake Amount 240 120 # Voids Void 1 Estimated Blood Loss 100 - Exam Cardiovascular: Present: Normal S1, Normal S2 Lungs: Present: Normal air movement Abdomen: Present: normal appearance, soft. Absent: distention, tenderness, guarding Uterus: Present: normal, firm, fundal height below umbilicus. Absent: bogginess Extremities: Present: normal. Absent: tenderness, edema
--- NOTE | 2021-11-16 10:29 | Discharge Summary ---
Providers - Providers Date of Admission: 11/14/21 19:34 Date of discharge: 11/16/21 Attending physician: LUANA GONSALEZ MD Primary care physician: LUANA GONSALEZ MD Hospitalization Reason for admission: induction of labor Delivery: Procedure details: see delivery notes complications: none Discharge diagnosis: IUP at term delivered [place] baby: male Hospital course: Pt admitted for IIOL due to GDM. No c/o this am. She has not had a complicated pp course. She will be d/c home today Condition at discharge: Good Disposition: 01 HOME / SELF CARE / HOMELESS Plan - Provider Discharge Summary Activity: no sex for 6 weeks, no heavy lifting 4 weeks, no strenuous exercise Additional instructions: [] Smoking cessation referral if applicable(refer to patient education folder for contact #) [] Refer to [facility] Booklet Call your doctor immediately for: * Fever > 100.5 * Heavy vaginal bleeding ( >1 pad per hour) * Severe persistent headache * Shortness of breath * Reddened, hot, painful area to leg or breast * Drainage or odor from incision. * Keep incision clean and dry at all times and follow doctor's instructions regarding bathing/showering CALL THE OFFICE TO SCHEDULE CIRCUMCISION - Follow up plan Follow up: LUANA GONSALEZ MD [Primary Care Provider] - 7 Days
[2021-11-16] MEDS: DOCUSATE SODIUM 100 MG CAP PO SCH (11:33)
[2021-11-16 16:16] VITALS: BP 119/78
[2021-11-16] MEDS ORDERED: TETANUS,DIPH,PERTUSS(ACELL) VACCINE 0.5 ML SYRINGE IM ONE (17:49)
== END 2021-11-16 19:30 | disposition home or self-care (01) | DRG 774 ==
LOC: UNDOADMIN 19:30 → APU 19:30 → LD 21:06 → OB 11-15 21:25
PROVIDERS: ADMIT Student in an Organized Health Care Education/Training Program; ATTEND Student in an Organized Health Care Education/Training Program
PROC: 10E0XZZ Delivery of Products of Conception, External Approach (ICD-10-PCS; principal; 2021-11-15)
PROC: 0HQ9XZZ Repair Perineum Skin, External Approach (ICD-10-PCS; 2021-11-15)
PROC: 3E0R3BZ Introduction of Anesthetic Agent into Spinal Canal, Percutaneous Approach (ICD-10-PCS; 2021-11-15)
PROC: 00HU33Z Insertion of Infusion Device into Spinal Canal, Percutaneous Approach (ICD-10-PCS; 2021-11-15)
PROC: 3E0234Z Introduction of Serum, Toxoid and Vaccine into Muscle, Percutaneous Approach (ICD-10-PCS; 2021-11-16)
DX: O76 Abnormality in fetal heart rate and rhythm complicating labor and delivery (principal); O98.12 Syphilis complicating childbirth; Z3A.39 39 weeks gestation of pregnancy; Z20.822 Contact with and (suspected) exposure to COVID-19; O99.214 Obesity complicating childbirth; O70.0 First degree perineal laceration during delivery; O24.429 Gestational diabetes mellitus in childbirth, unspecified control; Z37.0 Single live birth; Z23 Encounter for immunization; O99.892 Other specified diseases and conditions complicating childbirth
CPT/HCPCS: 36415; 82962; 85014; 85018; 85027; 86592; 86593; 86780; 86850; 86900; 86901; G0378; J3490; J2590; J7120; U0003